=== PATIENT | female | born 1950 | race Caucasian/White ===

== ENCOUNTER 2020-02-23 01:58 | Emergency (ER) | payer BC ==
[~2020-02-23] VITALS: Ht 175.3 cm; Wt 90.7 kg
[2020-02-23 02:20] LABS: ABSOLUTE BASOPHILS 0.1 thou/uL (0.0-0.2); ABSOLUTE EOSINOPHILS 0.3 thou/uL (0.0-0.7); ABSOLUTE LYMPHOCYTES 3.4 thou/uL (0.8-5.3); ABSOLUTE MONOCYTES 0.6 thou/uL (0.0-1.2); ABSOLUTE NEUTROPHILS 4.1 thou/uL (1.6-8.1); EOSINOPHILS 3.2 %; HEMATOCRIT 36.8 % (37.0-47.0); HEMOGLOBIN 12.6 gm/dL (12.0-15.0); LYMPHOCYTES 40.2 %; MCH 29.7 pg (26.0-34.0); MCHC 34.3 g/dL (28.0-37.0); MCV 86.4 fL (80.0-100.0); MONOCYTES 6.6 %; MPV 6.5 fl. (7.2-11.1); NUCLEATED RBCS 0 /100WBC; PLATELET COUNT* 289 thou/uL (150-400); RBC 4.26 mil/uL (4.20-5.00); RDW-CV 14.1 % (10.5-14.5); WBC 8.4 thou/uL (4.0-11.0)
[2020-02-23 02:40] LABS: CALCIUM 8.5 mg/dL (8.5-10.1); CREATININE 1.3 mg/dL (0.6-1.3)
[2020-02-23 02:41] LABS: POTASSIUM 2.6 mmol/L (3.5-5.1)
[2020-02-23 02:46] LABS: PROTIME 10.1 Seconds (9.20-11.50)
[2020-02-23 02:51] LABS: ALBUMIN 3.6 g/dL (3.4-5.0); MAGNESIUM 2.1 mg/dL (1.8-2.4); TOTAL BILIRUBIN 0.3 mg/dL (<0.1-1.0); TOTAL PROTEIN 7.2 g/dL (6.4-8.2)
[2020-02-23 03:16] LABS: URINE BILIRUBIN NEGATIVE (Negative); URINE BLOOD NEGATIVE (Negative); URINE CLARITY CLEAR; URINE COLOR YELLOW; URINE GLUCOSE-RANDOM 3+ (Negative); URINE KETONES NEGATIVE (Negative); URINE LEUKOCYTES-REFLEX NEGATIVE (Negative); URINE NITRITE-REFLEX NEGATIVE (Negative); URINE PROTEIN 2+ (Negative); URINE UROBILINOGEN 0.2 E.U./dl (0.2-1.0)
[2020-02-23 03:33] LABS: CRYSTALS None Seen /LPF (None Seen); FINE GRANULAR CASTS 0-3 Few /LPF (None Seen); HYALINE CASTS 0-3 Few /LPF (None Seen); MUCUS 4-6 Moderate strn/LPF (None Seen); SQUAMOUS 0-3 Few /LPF (0-3); TRANSITIONAL EPITHEL CELL 0-3 Few /LPF (None Seen); URINE RBC 3-10 Few /HPF (0-2); URINE WBC-REFLEX 6-15 Few /HPF (0-5)
[2020-02-23] MEDS ORDERED: MACROBID 100 M100 M1 PO (07:02)
[2020-02-23 07:28] VITALS: BP 158/73
--- NOTE | 2020-02-23 16:16 | EKG ---
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: : 1950 Requested By: Augustina Holland Order Number: [id number] MD: Devon Lang Measurements Intervals [place] Rate: 75 P: -2 MN: 214 QRS: -24 QRSD: 122 T: -23 QT: 404 QTc: 452 Interpretive Statements Sinus rhythm Multiform ventricular premature complexes Borderline prolonged MN interval Inferior infarct, old possible No previous ECG available for comparison Electronically Signed On 02-23-2020 16:15:53 CDT by Devon Lang [email or web address] <ELECTRONICALLY SIGNED> By: Devon Lang MD, FACC 02/23/20 1615 0238 0238 Devon Lang MD, [facility] /EPI
== END 2020-02-23 07:28 | disposition home or self-care (01) ==
LOC: M.ERS 01:58
PROVIDERS: Emergency Medicine
DX: E11.649 Type 2 diabetes mellitus with hypoglycemia without coma (principal); E87.6 Hypokalemia; R82.71 Bacteriuria; Z20.828 Contact with and (suspected) exposure to other viral communicable diseases; Z90.710 Acquired absence of both cervix and uterus; Z95.5 Presence of coronary angioplasty implant and graft; Z88.0 Allergy status to penicillin; Z88.2 Allergy status to sulfonamides; Z95.1 Presence of aortocoronary bypass graft

== ENCOUNTER 2020-12-19 02:20 | Emergency (ER) | payer BC ==
[~2020-12-19] VITALS: Ht 170.2 cm; Wt 90.7 kg
[~2020-12-19 02:20] MED LIST: MACROBID 100 M100 M1 PO
[2020-12-19] MEDS ORDERED: HUMULIN N100 UNIT/1 (02:49)
[2020-12-19] MEDS ORDERED: TOPROL XL50 MG (02:50)
[2020-12-19 03:27] LABS: URINE BILIRUBIN NEGATIVE (Negative); URINE BLOOD NEGATIVE (Negative); URINE CLARITY CLEAR; URINE COLOR YELLOW; URINE GLUCOSE-RANDOM 1+ (Negative); URINE KETONES NEGATIVE (Negative); URINE LEUKOCYTES-REFLEX NEGATIVE (Negative); URINE NITRITE-REFLEX NEGATIVE (Negative); URINE PROTEIN 2+ (Negative); URINE SPECIFIC GRAVITY 1.015 (1.005-1.030); URINE UROBILINOGEN 0.2 E.U./dl (0.2-1.0)
[2020-12-19 03:36] LABS: CALCIUM 8.9 mg/dL (8.5-10.1); CREATININE 1.1 mg/dL (0.6-1.3); POTASSIUM 3.4 mmol/L (3.5-5.1)
[2020-12-19 03:48] LABS: ABSOLUTE BASOPHILS 0.1 thou/uL (0.0-0.2); ABSOLUTE EOSINOPHILS 0.2 thou/uL (0.0-0.7); ABSOLUTE LYMPHOCYTES 1.5 thou/uL (0.8-5.3); ABSOLUTE MONOCYTES 0.5 thou/uL (0.0-1.2); ABSOLUTE NEUTROPHILS 4.6 thou/uL (1.6-8.1); BASOPHILS 0.7 %; EOSINOPHILS 3.3 %; HEMATOCRIT 42.1 % (37.0-47.0); HEMOGLOBIN 14.1 gm/dL (12.0-15.0); MCH 30.3 pg (26.0-34.0); MCHC 33.4 g/dL (28.0-37.0); MCV 90.8 fL (80.0-100.0); MONOCYTES 6.8 %; MPV 6.8 fl. (7.2-11.1); NUCLEATED RBCS 0 /100WBC; PLATELET COUNT* 236 thou/uL (150-400); POLYS 67.2 %; RBC 4.63 mil/uL (4.20-5.00); WBC 6.9 thou/uL (4.0-11.0)
[2020-12-19 06:12] VITALS: BP 122/68
== END 2020-12-19 06:12 | disposition home or self-care (01) ==
LOC: M.ERS 02:20
PROVIDERS: Emergency Medicine
DX: E11.649 Type 2 diabetes mellitus with hypoglycemia without coma (principal); Z88.0 Allergy status to penicillin; Z88.2 Allergy status to sulfonamides; Z88.8 Allergy status to other drugs, medicaments and biological substances; Z95.5 Presence of coronary angioplasty implant and graft